=== PATIENT | male | born 1945 | race African-American/Black ===

== ENCOUNTER 2017-12-08 08:08 | Emergency (ER) | payer OTHER ==
[2017-12-08 08:17] VITALS: RESP 18; TEMP 97.5
--- NOTE | 2017-12-08 09:21 | EDPHY ---
H & P Time Seen by Provider: 12/08/17 09:06 HPI/ROS: Chief complaint. Left knee pain HPI. 72-year-old male presents emergency department with left knee pain swelling. Patient had a left knee replacement 4 days ago at [facility]. Since then he has had increased pain and swelling. No fever. Noticed a blood blister on the inferior inside aspect of the incision. Not low chest pain or shortness of breath. Increased difficulty walking. ROS Constitutional. no fever/chills, no weakness Eyes. no problems with vision ENT. no sore throat, no nasal drainage Cardiovascular. no chest pain Respiratory. no shortness of breath, no cough Abdominal. no abdominal pain, no nausea/vomiting, no diarrhea . no problems urinating MS. Left knee pain, swelling Skin. no rash Lymph. no swollen glands Neuro. Difficulty walking Past Medical/Surgical History: Past medical history prostate cancer and surgery and then recent left knee replacement Social History: , nonsmoker, no alcohol Smoking Status: Never smoked Physical Exam: General Appearance: Alert well-developed male mild distress vital signs are stable Eyes: Pupils equal and round no pallor or injection. ENT, Mouth: Mucous membranes are moist. Respiratory: There are no retractions, lungs are clear to auscultation. Cardiovascular: Regular rate and rhythm. Gastrointestinal: Abdomen is soft and nontender, no masses, bowel sounds normal. Neurological: Awake and alert, sensory and motor exams grossly normal. Skin: Warm and dry, no rashes. Musculoskeletal: Neck is supple nontender. Extremities left knee with erythema, warmth, swelling. Incision is intact. 1 x 3 cm blood blister inferior medial aspect of the left knee. No lymphangitis Psychiatric: Patient is oriented X 3, there is no agitation. Constitutional: Initial Vital Signs Temperature (C) 36.4 C 12/08/17 08:14 Heart Rate 88 12/08/17 08:14 Respiratory Rate 18 12/08/17 08:14 Blood Pressure 138/76 H 12/08/17 08:14 O2 Sat (%) 97 12/08/17 08:14 O2 Delivery Mode Room Air Allergies/Adverse Reactions: No Known Allergies Allergy (Verified 12/08/17 08:14) Home Medications: Medication Instructions Recorded Colace 100 MG (OTC) 10/01/15 Oxycodone-Acetaminophen 5-325 01/08/16 Lovenox 12/08/17 Medical Decision Making Procedures: IV normal saline. Blood cultures, wound culture. Vancomycin following blood cultures ED Course/Re-evaluation: On re-evaluation at 10:00 a.m. The patient is stable. The patient, his , and I discussed treatment plan including need for further evaluation by orthopedist at an [facility]. They expressed understanding and agreement. I consulted and discussed the case with Dr. Zachary Dempsey lease administration supervisor for Orthopedics for Dr. Bazan in the operating surgeon. He recommends transfer to the emergency department [facility]. I also consulted and discussed the case with Dr.Sean Dallas in the emergency department at [facility] who will coordinate care when the patient arrives. Differential Diagnosis: This appears to be postoperative cellulitis. I can't clinically tell how deep the infection goes. Concern is for septic joint with knee replacement. Plan is further evaluation by operating surgeon and IV antibiotics. - Data Points Laboratory Results: Laboratory Results 12/08/17 09:00 12/08/17 09:00 12/08/17 12/08/17 12/08/17 09:48 09:00 09:00 WBC 9.51 10^3/uL H 10^3/uL (3.80-9.50) RBC 3.79 10^6/uL L 10^6/uL (4.40-6.38) Hgb 10.9 g/dL L g/dL (13.7-17.5) Hct 32.8 % L % (40.0-51.0) MCV 86.5 fL fL (81.5-99.8) MCH 28.8 pg pg (27.9-34.1) MCHC 33.2 g/dL g/dL (32.4-36.7) RDW 14.5 % % (11.5-15.2) Plt Count 132 10^3/uL L 10^3/uL (150-400) MPV 10.4 fL fL (8.7-11.7) Neut % (Auto) 72.1 % % (39.3-74.2) Lymph % (Auto) 11.5 % L % (15.0-45.0) [place] % (Auto) 13.0 % % (4.5-13.0) Eos % (Auto) 2.2 % % (0.6-7.6) Baso % (Auto) 0.7 % % (0.3-1.7) Nucleat RBC Rel Count 0.0 % % (0.0-0.2) Absolute Neuts (auto) 6.85 10^3/uL H 10^3/uL (1.70-6.50) Absolute Lymphs (auto) 1.09 10^3/uL 10^3/uL (1.00-3.00) Absolute Monos (auto) 1.24 10^3/uL H 10^3/uL (0.30-0.80) Absolute Eos (auto) 0.21 10^3/uL 10^3/uL (0.03-0.40) Absolute Basos (auto) 0.07 10^3/uL 10^3/uL (0.02-0.10) Absolute Nucleated RBC 0.00 10^3/uL 10^3/uL (0-0.01) Immature Gran % 0.5 % % (0.0-1.1) Immature Gran # 0.05 10^3/uL 10^3/uL (0.00-0.10) VBG Lactic Acid 1.4 mmol/L mmol/L (0.7-2.1) Sodium 137 mEq/L mEq/L (135-145) Potassium 4.0 mEq/L mEq/L (3.5-5.2) Chloride 97 mEq/L mEq/L (97-110) Carbon Dioxide 28 mEq/l mEq/l (22-31) Anion Gap 12 mEq/L mEq/L (8-16) BUN 12 mg/dL mg/dL (7-23) Creatinine 0.8 mg/dL mg/dL (0.7-1.3) Estimated GFR > 60 Glucose 108 mg/dL H mg/dL (70-100) Calcium 8.4 mg/dL L mg/dL (8.5-10.4) C-Reactive Protein Pending Medications Given: Vancomycin HCl 1 gm/ Sodium (Chloride) 250 mls @ 250 mls/hr IV EDNOW ONE PRN Reason: Protocol Stop: 12/08/17 10:59 Last Admin: 12/08/17 10:04 Dose: 250 mls Departure - Departure Disposition: Home, Routine, Self-Care Clinical Impression: Cellulitis Qualifiers: Site of cellulitis: extremity Site of cellulitis of extremity: lower extremity Laterality: left Qualified Code(s): L03.116 - Cellulitis of left lower limb Condition: Fair Instructions: Cellulitis (ED) Additional Instructions: Go to the emergency department at [facility]. I discussed the case with Dr. Gagan Dallas who is the emergency room physician. He will see you there. I spoke to Dr. Zachary Colmenares who is the orthopedist lease administration supervisor for Dr. Herring. He will see you in the emergency department. Referrals: JOHN HILLIARD [Other] - As per Instructions
[2017-12-08] MEDS ORDERED: VANCOMYCIN HCL/NORMAL SALINE 250 ML IV ONE (09:30)
[2017-12-08 09:38] LABS: PLATELET COUNT 132 10^3/uL (150-400)
[2017-12-08] MEDS ORDERED: VANCOMYCIN 1 GM in NS 250 ML IV ONE (10:00)
[2017-12-08 11:05] VITALS: PULSE 82; O2SAT 96
[2017-12-08 11:22] VITALS: BP 155/83
== END 2017-12-08 11:29 | disposition home or self-care (01) ==
DX: L03.116 Cellulitis of left lower limb (principal); Z85.46 Personal history of malignant neoplasm of prostate
CPT/HCPCS: 96365; 99284; J3370